=== PATIENT | male | born 1990 | race Caucasian/White ===

== ENCOUNTER 2022-03-06 05:00 | Emergency (ER) | payer OTHER, SELFPAY ==
[2022-03-06] VITALS (9 sets, daily range): BP systolic 102–112; BP diastolic 51–63; PULSE 58–81; RESP 16–25; TEMP 37.1; O2SAT 97–100; BMI 23.8
--- NOTE | 2022-03-06 05:26 | DI.CT.S_ITS ---
PROCEDURE: CT HEAD/BRAIN WO CON INDICATIONS: first time seizure TECHNIQUE: Noncontrast 4.5 mm thick angled axial sections acquired from the foramen magnum to the vertex, with coronal and sagittal reformats. For radiation dose reduction, the following was used: automated exposure control, adjustment of mA and/or kV according to patient size. COMPARISON: [facility], CR, XR CHEST 1V, 03/06/2022, 5:26. FINDINGS: Image quality: Excellent. CSF spaces: Basal cisterns are patent. No extra-axial fluid collections. Ventricles are normal in size and shape. Brain: No midline shift. No intracranial masses or hemorrhage. Shelton-white matter interface is normal. Skull and face: Calvarium and visualized facial bones are intact, without suspicious lesions. Sinuses: Moderate mucosal thickening is seen within the maxillary sinuses. Visualized sinuses and mastoids are otherwise relatively clear. IMPRESSION: Unremarkable noncontrast head CT, without a cause of seizure identified. Paranasal sinus disease noted. Note: No significant discrepancy from the preliminary report. Dictated by: Ronald Gresham M.D. on 03/06/2022 at 8:31 Approved by: Ronald Gresham M.D. on 03/06/2022 at 8:33
--- NOTE | 2022-03-06 05:26 | DI.RAD.S_ITS ---
PROCEDURE: XR CHEST 1V INDICATIONS: cough TECHNIQUE: One view of the chest was acquired. COMPARISON: [facility], CT, CT HEAD/BRAIN WO CON, 03/06/2022, 5:40. FINDINGS: Surgical changes and devices: None. Lungs and pleura: Lungs are clear. No pleural effusions or pneumothorax. Mediastinum: Mediastinal contours appear normal. Heart size is normal. Bones and chest wall: No suspicious bony lesions. Overlying soft tissues appear unremarkable. IMPRESSION: Normal chest. No infiltrates. If there is strong clinical concern for developing aspiration pneumonia in this patient with a recent seizure, please consider a short term followup examination, as aspiration pneumonia can have a delayed radiographic appearance. Note: No significant discrepancy from the preliminary report. Dictated by: Ronald Gresham M.D. on 03/06/2022 at 8:30 Approved by: Ronald Gresham M.D. on 03/06/2022 at 8:30
--- NOTE | 2022-03-06 05:27 | ED.SYNCOPE ---
HPI - Syncope <DO Sheila Espinoza Last Filed: 03/06/22 23:06> General Chief Complaint: Syncope Stated Complaint: seizure/fell/hit head Time Seen by Provider: 03/06/22 05:15 History of Present Illness HPI narrative: 31-year-old male nonsmoker with benign medical history presents with his significant other and a chief complaint of a concern for seizure this morning. He has been a bit under the weather for the past few weeks it includes nasal congestion, cough occasionally with sputum and generalized fatigue. He has had no nausea, vomiting or diarrhea. He has not been sleeping well admittedly. He woke up to urinate this morning and began feeling lightheaded and as if he may pass out. His significant other came to find him as he reached out for the wall and fell forward striking his head on the wall and possibly toilet. She rolled him on his side and noted that his eyes had rolled back and he became stiff. This lasted about 1 minute or so and then he very quickly came back to baseline. He has had no nausea or vomiting, denies any blurred vision or trouble with speech, has no extremity numbness, weakness or tingling. He takes no blood thinners, he does not drink any alcohol. He did not bite his tongue and did not lose control of his bowel or bladder. He has never had a seizure before. Related Data Allergies Allergy/AdvReac Type Severity Reaction Status Date / Time amoxicillin Allergy Hives Verified 03/06/22 05:11 Review of Systems <DO Sheila Espinoza Last Filed: 03/06/22 23:06> Review of Systems Narrative: GENERAL: See HPI HEENT: Denies sinus pain, ear pain, sore throat, difficulty swallowing, dizziness. RESPIRATORY: See HPI CARDIOVASCULAR: Denies chest pain, palpitations, orthopnea, edema, GASTROINTESTINAL: Denies nausea, vomiting, abdominal pain, diarrhea, constipation, melena. : Denies dysuria, frequency, incontinence, hematuria, urinary retention. MUSCULOSKELETAL: denies weakness, joint pain, or bony pain SKIN: Denies rash, skin lesions, or other NEUROLOGIC: see HPI PSYCHIATRIC: No concerning psychosocial issues. 12 point review of systems is negative except for those stated above Patient History <DO Sheila Espinoza Last Filed: 03/06/22 23:06> Social History Smoking Status: Never smoker Exam <Kyle Bradley DO - Last Filed: 03/06/22 23:06> Narrative Exam Narrative: GENERAL: [31] year old patient appears stated age. Well-developed patient, in mild distress. Anxious HEAD: Atraumatic. Normocephalic. EYES: Pupils equal round and reactive. Extraocular motions intact. No scleral icterus. No injection or drainage. ENT: Nose without bleeding, purulent drainage. Throat without erythema, tonsillar hypertrophy or exudate. Airway patent. NECK: Trachea midline. Non tender. No midline tenderness, stepoffs or crepitance. CARDIOVASCULAR: Regular rate and rhythm without murmurs, gallops, or rubs. RESPIRATORY: Clear to auscultation. Breath sounds equal bilaterally. No wheezes, rales, or rhonchi. GASTROINTESTINAL: Abdomen soft, non-tender, nondistended. EXTREMITIES: No edema or joint tenderness. BACK: Nontender without deformity or crepitance. No flank tenderness. NEURO: AOx3. SKIN: No rash or erythema of visible areas Initial Vital Signs Initial Vital Signs: Vital Signs Temperature 98.7 F 03/06/22 05:11 Pulse Rate 72 03/06/22 05:11 Respiratory Rate 16 03/06/22 05:11 Blood Pressure 110/63 03/06/22 05:11 Pulse Oximetry 100 03/06/22 05:11 <Evan Sheffield DO - Last Filed: 03/06/22 08:15> Initial Vital Signs Initial Vital Signs: Vital Signs Temperature 98.7 F 03/06/22 05:11 Pulse Rate 72 03/06/22 05:11 Respiratory Rate 16 03/06/22 05:11 Blood Pressure 110/63 03/06/22 05:11 Pulse Oximetry 100 03/06/22 05:11 Course <Kyle Bradley DO - Last Filed: 03/06/22 23:06> Orders Ordered: Discontinued Medications Sodium Chloride (Normal Saline 0.9%) 1,000 mls @ 1,000 mls/hr IV BOLUS ONE Stop: 03/06/22 06:24 Last Infusion: 03/06/22 06:53 Dose: 0 mls/hr Documented by: Admin: 03/06/22 05:42 Dose: 1,000 mls/hr Documented by: MARY Sodium Chloride (Normal Saline 0.9%) 1,000 mls @ 1,000 mls/hr IV BOLUS ONE Stop: 03/06/22 07:52 Last Admin: 03/06/22 06:58 Dose: 1,000 mls/hr Documented by: MARY Vital Signs Vital signs: Vital Signs - 8 hr 03/06/22 05:11 03/06/22 05:47 03/06/22 05:48 Temperature 98.7 F Pulse Rate 72 77 74 Respiratory Rate 16 25 H 21 Blood Pressure 110/63 108/61 Pulse Oximetry 100 03/06/22 06:00 03/06/22 06:30 03/06/22 07:00 Temperature Pulse Rate 70 72 81 Respiratory Rate 19 Blood Pressure 104/59 L 110/51 L 102/63 Pulse Oximetry 97 <Evan Sheffield DO - Last Filed: 03/06/22 08:15> Orders Ordered: Discontinued Medications Sodium Chloride (Normal Saline 0.9%) 1,000 mls @ 1,000 mls/hr IV BOLUS ONE Stop: 03/06/22 06:24 Last Infusion: 03/06/22 06:53 Dose: 0 mls/hr Documented by: Admin: 03/06/22 05:42 Dose: 1,000 mls/hr Documented by: MARY Sodium Chloride (Normal Saline 0.9%) 1,000 mls @ 1,000 mls/hr IV BOLUS ONE Stop: 03/06/22 07:52 Last Admin: 03/06/22 06:58 Dose: 1,000 mls/hr Documented by: MARY Vital Signs Vital signs: Vital Signs - 8 hr 03/06/22 05:11 03/06/22 05:47 03/06/22 05:48 Temperature 98.7 F Pulse Rate 72 77 74 Respiratory Rate 16 25 H 21 Blood Pressure 110/63 108/61 Pulse Oximetry 100 03/06/22 06:00 03/06/22 06:30 03/06/22 07:00 Temperature Pulse Rate 70 72 81 Respiratory Rate 19 Blood Pressure 104/59 L 110/51 L 102/63 Pulse Oximetry 97 MDM - Syncope <Kyle Bradley DO - Last Filed: 03/06/22 23:06> Lab Data Result diagrams: 03/06/22 05:30 03/06/22 05:30 Labs: Lab Results 03/06/22 03/06/22 03/06/22 Range/Units 05:30 05:30 06:50 WBC 6.7 (4.5-11.0) X10^3/uL RBC 4.57 (4.5-5.9) X10^6/uL Hgb 13.6 (13.5-17.5) g/dL Hct 40.3 L (41-53) % MCV 88.2 (80-100) fL MCH 29.8 (26-34) PG MCHC 33.8 (30-36) % RDW 13.5 (11.6-14.8) % Plt Count 220 (150-400) X10^3/uL Neut % (Auto) 55.1 (50-75) % Lymph % (Auto) 25.2 (25-40) % Dent % (Auto) 11.2 (3-14) % Eos % (Auto) 7.7 H (2-4) % Baso % (Auto) 0.8 (0-2) % Neut # (Auto) 3700 (6294-5513) /uL Lymph # (Auto) 1700 (7113-0903) /uL Dent # (Auto) 800 (0-900) /uL Eos # (Auto) 500 H (0-450) /uL Baso # (Auto) 100 (0-100) /uL Sodium 137 (137-145) mmol/L Potassium 3.6 (3.4-5.1) mmol/L Chloride 101 (98-107) mmol/L Carbon Dioxide 30 (22-32) mmol/L BUN 6 L (9-20) mg/dL Creatinine 0.90 (0.66-1.25) mg/dL Estimated GFR > 60 (>60) mL/min BUN/Creatinine Ratio 6.7 (6-22) Glucose 144 H (70-100) mg/dL Calcium 8.3 L (8.4-10.2) mg/dL Magnesium 1.8 (1.6-2.3) mg/dL Total Bilirubin 0.8 (0.2-1.3) mg/dL AST 33 (17-59) IU/L ALT 20 (<50) IU/L Alkaline Phosphatase 62 (38-126) U/L Total Creatine Kinase 348 H (55-170) U/L CK-MB (CK-2) 2.78 H (<2.37) ng/mL CK-MB (CK-2) Rel Index 0.8 L (1.5-5.0) % Troponin I < 0.012 (0.01-0.034) ng/mL NT-Pro-B Natriuret Pep 20 (<125) pg/mL Total Protein 7.0 (6.3-8.2) g/dL Albumin 4.1 (3.5-5.0) g/dL Globulin 2.9 (1.7-4.1) g/dL Albumin/Globulin Ratio 1.4 (1.0-2.8) Lipase 58 (23-300) U/L Chlamy pneumoniae PCR Not detected (Not Detect) Adenovirus (PCR) Not detected (Not Detect) B. pertussis DNA (PCR) Not detected (Not Detecte) B.parapertussis DNA PCR Not detected (Not Detecte) Coronavirus OC43 (PCR) Not detected (Not Detect) Coronavirus HKU1 (PCR) Not detected (Not Detect) Coronavirus 229E (PCR) Not detected (Not Detect) SARS-CoV-2 (PCR) Not detected (Not Detecte) Coronavirus NL63 (PCR) Not detected (Not Detect) Human Metapneumovir PCR Detected H (Not Detect) Influenza Type A (PCR) Not detected (Not Detect) Influenza Type B (PCR) Not detected (Not Detect) M. pneumoniae (PCR) Not detected (Not Detect) Parainfluenza 1 (PCR) Not detected (Not Detect) Parainfluenza 2 (PCR) Not detected (Not Detect) Parainfluenza 3 (PCR) Not detected (Not Detect) Parainfluenza 4 (PCR) Not detected (Not Detect) RSV (PCR) Not detected (Not Detect) Entero/Rhino (PCR) Not detected (Not Detect) Imaging Data CT scan - head: Radiologist's Impression: ESTELLA Chest x-ray: Radiologist's Impression: ESTELLA <Evan Sheffield DO - Last Filed: 03/06/22 08:15> Lab Data Labs: Lab Results 03/06/22 03/06/22 03/06/22 Range/Units 05:30 05:30 06:50 WBC 6.7 (4.5-11.0) X10^3/uL RBC 4.57 (4.5-5.9) X10^6/uL Hgb 13.6 (13.5-17.5) g/dL Hct 40.3 L (41-53) % MCV 88.2 (80-100) fL MCH 29.8 (26-34) PG MCHC 33.8 (30-36) % RDW 13.5 (11.6-14.8) % Plt Count 220 (150-400) X10^3/uL Neut % (Auto) 55.1 (50-75) % Lymph % (Auto) 25.2 (25-40) % Dent % (Auto) 11.2 (3-14) % Eos % (Auto) 7.7 H (2-4) % Baso % (Auto) 0.8 (0-2) % Neut # (Auto) 3700 (9324-6083) /uL Lymph # (Auto) 1700 (3687-7769) /uL Dent # (Auto) 800 (0-900) /uL Eos # (Auto) 500 H (0-450) /uL Baso # (Auto) 100 (0-100) /uL Sodium 137 (137-145) mmol/L Potassium 3.6 (3.4-5.1) mmol/L Chloride 101 (98-107) mmol/L Carbon Dioxide 30 (22-32) mmol/L BUN 6 L (9-20) mg/dL Creatinine 0.90 (0.66-1.25) mg/dL Estimated GFR > 60 (>60) mL/min BUN/Creatinine Ratio 6.7 (6-22) Glucose 144 H (70-100) mg/dL Calcium 8.3 L (8.4-10.2) mg/dL Magnesium 1.8 (1.6-2.3) mg/dL Total Bilirubin 0.8 (0.2-1.3) mg/dL AST 33 (17-59) IU/L ALT 20 (<50) IU/L Alkaline Phosphatase 62 (38-126) U/L Total Creatine Kinase 348 H (55-170) U/L CK-MB (CK-2) 2.78 H (<2.37) ng/mL CK-MB (CK-2) Rel Index 0.8 L (1.5-5.0) % Troponin I < 0.012 (0.01-0.034) ng/mL NT-Pro-B Natriuret Pep 20 (<125) pg/mL Total Protein 7.0 (6.3-8.2) g/dL Albumin 4.1 (3.5-5.0) g/dL Globulin 2.9 (1.7-4.1) g/dL Albumin/Globulin Ratio 1.4 (1.0-2.8) Lipase 58 (23-300) U/L Chlamy pneumoniae PCR Not detected (Not Detect) Adenovirus (PCR) Not detected (Not Detect) B. pertussis DNA (PCR) Not detected (Not Detecte) B.parapertussis DNA PCR Not detected (Not Detecte) Coronavirus OC43 (PCR) Not detected (Not Detect) Coronavirus HKU1 (PCR) Not detected (Not Detect) Coronavirus 229E (PCR) Not detected (Not Detect) SARS-CoV-2 (PCR) Not detected (Not Detecte) Coronavirus NL63 (PCR) Not detected (Not Detect) Human Metapneumovir PCR Detected H (Not Detect) Influenza Type A (PCR) Not detected (Not Detect) Influenza Type B (PCR) Not detected (Not Detect) M. pneumoniae (PCR) Not detected (Not Detect) Parainfluenza 1 (PCR) Not detected (Not Detect) Parainfluenza 2 (PCR) Not detected (Not Detect) Parainfluenza 3 (PCR) Not detected (Not Detect) Parainfluenza 4 (PCR) Not detected (Not Detect) RSV (PCR) Not detected (Not Detect) Entero/Rhino (PCR) Not detected (Not Detect) [facility] Narrative Medical decision making narrative: Dr sheffield: Received turnover. Reviewed patient's history and physical exam. Reviewed patient's radiologic studies up to this point. Respiratory panel positive for human metapneumovirus which most likely explains all of his upper respiratory symptoms that he has been having the for the past couple days. He was informed of this finding. We also discussed the other symptoms that occurred this morning to include his syncopal episode. It did not appear that he had a postictal state. I informed them that is most likely not a seizure however patient follow-up with their primary provider to discuss further evaluation treatment. They expressed understanding and agreement. Discharge Plan Departure Patient Disposition: Home Clinical Impression: Infection due to human metapneumovirus (hMPV), Syncope Instructions: DI for Syncope in Adults (Fainting), DI for Viral Upper Respiratory Infection -- Adult Activity Restrictions/Additional Instructions: The upper respiratory infection is self-limited and should get better within the next couple days. Be sure to stay hydrated. You can take [id number] cough and cold preparations if you feel like it is helping you. You can take Tylenol for any fevers. Recommend you contact your primary doctor for follow-up. Return to the emergency department for any new or worsening symptoms. Stand Alone Forms: Work Release Note
[2022-03-06] MEDS: SODIUM CHLORIDE 0.9% 1,000 ML 1000 ML IV ×2 (05:42→06:58)
[2022-03-06 05:43] LABS: Add Manual Diff / Slide Review NO; Basophils Absolute Auto 100 /uL (0-100); Basophils Percent Auto 0.8 % (0-2); Eosinophils Absolute Auto 500 /uL (0-450); Eosinophils Percent Auto 7.7 % (2-4); Hematocrit 40.3 % (41-53); Hemoglobin 13.6 g/dL (13.5-17.5); Lymphocytes Absolute Auto 1700 /uL (1100-4500); Lymphocytes Percent Auto 25.2 % (25-40); Mean Corpuscular HGB Conc 33.8 % (30-36); Mean Corpuscular Hemoglobin 29.8 PG (26-34); Mean Corpuscular Volume 88.2 fL (80-100); Monocytes Absolute Auto 800 /uL (0-900); Monocytes Percent Auto 11.2 % (3-14); Neutrophils Absolute Auto 3700 /uL (1500-7000); Neutrophils Percent Auto 55.1 % (50-75); Platelet Count 220 X10^3/uL (150-400); Red Blood Cell Count 4.57 X10^6/uL (4.5-5.9); Red Cell Distribution Width 13.5 % (11.6-14.8); White Blood Cell Count 6.7 X10^3/uL (4.5-11.0)
[2022-03-06 05:53] LABS: Alanine Aminotransferase 20 IU/L (<50); Albumin 4.1 g/dL (3.5-5.0); Albumin Globulin Ratio 1.4 (1.0-2.8); Alkaline Phosphatase 62 U/L (38-126); Aspartate Aminotransferase 33 IU/L (17-59); BUN Creatinine Ratio 6.7 (6-22); Bilirubin Total 0.8 mg/dL (0.2-1.3); Blood Urea Nitrogen 6 mg/dL (9-20); Calcium 8.3 mg/dL (8.4-10.2); Carbon Dioxide 30 mmol/L (22-32); Chloride 101 mmol/L (98-107); Creatine Kinase 348 U/L (55-170); Estimated Glomerular Filt Rate > 60 mL/min (>60); Globulin 2.9 g/dL (1.7-4.1); Glucose 144 mg/dL (70-100); HEMOLYSIS < 15 (0-50); Lipase 58 U/L (23-300); Magnesium 1.8 mg/dL (1.6-2.3); Potassium 3.6 mmol/L (3.4-5.1); Sodium 137 mmol/L (137-145)
[2022-03-06 06:05] LABS: NT-proBNP (BNP-Adult 18+) 20 pg/mL (<125); Troponin I < 0.012 ng/mL (0.01-0.034)
[2022-03-06 06:08] LABS: CKMB % Relative Index 0.8 % (1.5-5.0); Creatine Kinase MB 2.78 ng/mL (<2.37)
[2022-03-06 07:43] LABS: Adenovirus Not Detected (Not Detect); B. parapertussis Not Detected (Not Detecte); Bordetella pertussis Not Detected (Not Detecte); Chlamydophila pneumoniae Not Detected (Not Detect); Coronavirus 229E Not Detected (Not Detect); Coronavirus HKU1 Not Detected (Not Detect); Coronavirus NL 63 Not Detected (Not Detect); Coronavirus OC43 Not Detected (Not Detect); Human Metapneumovirus Detected (Not Detect); Human Rhinovirus/Enterovirus Not Detected (Not Detect); Influenza A Not Detected (Not Detect); Influenza B Not Detected (Not Detect); Mycoplasma pneumoniae Not Detected (Not Detect); Parainfluenza Virus 1 Not Detected (Not Detect); Parainfluenza Virus 2 Not Detected (Not Detect); Parainfluenza Virus 3 Not Detected (Not Detect); Parainfluenza Virus 4 Not Detected (Not Detect); Respiratory Syncytial Virus Not Detected (Not Detect); SARS- CoV-2 Not Detected (Not Detecte)
== END 2022-03-06 08:46 | disposition home or self-care (01) ==
PROVIDERS: Emergency Medicine; Emergency Provider Emergency Medicine
DX: B99.9 Unspecified infectious disease (principal); B97.81 Human metapneumovirus as the cause of diseases classified elsewhere; R55 Syncope and collapse
CPT/HCPCS: 36415; 70450; 71045; 80053; 82550; 82553; 83690; 83735; 83880; 84484; 85025; 87633; 93005; 93010; 96360; 99284

== ENCOUNTER → 2023-10-21 13:06 | Outpatient (CLI) | payer BC, SELFPAY ==
--- NOTE | 2023-10-21 13:08 | DI.RAD.S_ITS ---
PROCEDURE: XR CHEST 2V INDICATIONS: Right-sided chest pain w/ short of breath TECHNIQUE: 2 views of the chest were acquired. COMPARISON: [facility], CR, XR CHEST 1V, 03/06/2022, 5:26. FINDINGS: Surgical changes and devices: None. Lungs and pleura: Lungs are clear. No pleural effusions or pneumothorax. Mediastinum: Mediastinal contours are normal. Heart size is normal. Bones and chest wall: No suspicious bony abnormalities. Soft tissues appear unremarkable. IMPRESSION: No acute cardiopulmonary abnormality is seen. No pneumothorax or focal infiltrate can be seen. Dictated by: Ronald Gresham M.D. on 10/21/2023 at 13:08 Approved by: Ronald Gresham M.D. on 10/21/2023 at 13:08
== END ==
PROVIDERS: PCP Family Medicine; Referring Provider Registered Nurse; Visit Provider Registered Nurse
DX: R06.02 Shortness of breath (principal)
CPT/HCPCS: 71046